=== PATIENT | male | born 1940 | race Caucasian/White ===

== ENCOUNTER 2017-12-30 18:30 | Emergency (ER) | payer MEDICARE, OTHER ==
[2017-12-30] MEDS: NORCO 5/325 MG PO ONE ×2 (19:16→21:33)
[2017-12-30] MEDS ORDERED: NORCO 5/325 MG ONE ×2 (19:16→21:31)
--- NOTE | 2017-12-30 19:20 | ERPHSYRPT ---
- History of Present Illness Time Seen by Provider: 12/30/17 19:07 Source: patient Exam Limitations: no limitations Patient Subjective Stated Complaint: pt here for a fall from a combine tire, about 4 feet high, no loc Triage Nursing Assessment: pt walked in holding left arm,pt co pain to upper left arm, abrasion to forehead,neck pain. no loc Physician History: This is a 77-year-old white male with history of atherosclerotic coronary artery disease who arrives with complaint of falling off of a combine tire which was about 4 feet high at about 10:30 this morning he complains of neck pain he has pain in the bruising on his anterior forehead and pain in his left arm. He denies any loss of consciousness he is not having any chest pain shortness of breath he has pain with any of movement of his left arm this is located in the mid left humeral region. He has no belly pain. Past medical history includes atherosclerotic coronary artery disease myocardial infarction. Past surgical history includes CABG. Social history patient denies tobacco alcohol or illicit drug use. Timing/Duration: today (110:30 AM) Severity: moderate Modifying Factors: Improves With: movement Associated Symptoms: other (pain and bruising forehead, posterior neck pain, left armpain ), No nausea, No vomiting, No abdominal pain, No shortness of breath, No diaphoresis, No cough, No chills, No chest pain, No fever, No headaches, No loss of appetite, No malaise, No rash, No syncope, No seizure, No weakness Allergies/Adverse Reactions: No Known Drug Allergies Allergy (Unverified 12/30/17 18:41) Home Medications: Aspirin EC 325 mg [Ecotrin 325 MG] 352 mg DAILY 12/30/17 [History] Enalapril Maleate 5 mg [Vasotec 5 MG] 5 mg DAILY 12/30/17 [History] Esomeprazole Magnesium [Nexium] 20 mg DAILY 12/30/17 [History] Simvastatin 20 mg DAILY 12/30/17 [History] Hx Tetanus, Diphtheria Vaccination/Date Given: No Hx Influenza Vaccination/Date Given: No Hx Pneumococcal Vaccination/Date Given: No Immunizations Up to Date: Yes - Review of Systems Constitutional: No Fever, No Chills Eyes: No Symptoms Ears, Nose, & Throat: No Symptoms Respiratory: No Cough, No Dyspnea Cardiac: No Chest Pain, No Edema, No Syncope Abdominal/Gastrointestinal: No Abdominal Pain, No Nausea, No Vomiting, No Diarrhea Genitourinary Symptoms: No Dysuria Musculoskeletal: Neck Pain, Other (left arm pain) Skin: No Rash Neurological: Other (pain and bruising forehead), No Dizziness, No Focal Weakness, No Sensory Changes Psychological: No Symptoms Endocrine: No Symptoms All Other Systems: Reviewed and Negative - Past Medical History Pertinent Past Medical History: Yes Cardiac History: Coronary Artery Disease - Past Surgical History Past Surgical History: Yes Cardiac: Cardiac Catheterization - Social History Smoking Status: Never smoker Exposure to second hand smoke: No Drug Use: none Patient Lives Alone: No - Nursing Vital Signs Nursing Vital Signs: Initial Vital Signs Temperature 97 F 12/30/17 18:34 Pulse Rate 48 L 12/30/17 18:34 Respiratory Rate 16 12/30/17 18:34 Blood Pressure 156/80 12/30/17 18:34 O2 Sat by Pulse Oximetry 97 12/30/17 18:34 Pain Scale Pain Intensity 4 - Physical Exam General Appearance: mild distress, alert, other (eccymosis and mild tenderness anterior forehead) Eye Exam: PERRL/EOMI, eyes nml inspection Ears, Nose, Throat Exam: normal ENT inspection, TMs normal, pharynx normal, moist mucous membranes Neck Exam: other (neck in c collar) Respiratory Exam: normal breath sounds, lungs clear, No respiratory distress Cardiovascular Exam: regular rate/rhythm, normal heart sounds, normal peripheral pulses, capillary refill <2 sec Gastrointestinal/Abdomen Exam: soft, normal bowel sounds, No tenderness, No mass Back Exam: normal inspection, normal range of motion, No CVA tenderness, No vertebral tenderness Extremity Exam: other (pain with palpation lateral mid arm decreased leo left shoulder secondary to left arm pain) Neurologic Exam: alert, oriented x 3, cooperative, operator control room II-XII nml as tested, normal mood/affect, nml cerebellar function, nml station & gait, sensation nml, No motor deficits Skin Exam: normal color, warm, dry, No rash SpO2 Interpretation: normal (97%) SpO2: 97 Oxygen Delivery: Room Air - Course Nursing assessment & vital signs reviewed: Yes - Radiology Exams Left Shoulder X-ray Interpretation: Discussed w/ radiologist (x-ray left shoulder: No comparisons. Osteopenia, moderate AC degenerative arthropathy and tiny foreign body left chest wall, high riding humeral head. Rule out rotator cuff tear) - CT Exams Cervical Spine CT Interpretation: Discussed w/radiologist (no comparisons, multilevel degenerative disc disease O/W negative CT spine) Head CT Interpretation: Discussed w/radiologist (Head Ct: no comparisons, O/W non acute ct brain) Ordered Tests: Active Orders 24 hr Category Date Time Status Cervical Collar Application STAT Care 12/30/17 21:01 Active Sling Application STAT Care 12/30/17 21:13 Active Wound Care STAT Care 12/30/17 20:51 Active CERVICAL SPINE WO CONTRAST [CT] Stat Exams 12/30/17 19:12 Taken HEAD WITHOUT CONTRAST [CT] Stat Exams 12/30/17 19:12 Taken HUMERUS Stat Exams 12/30/17 19:13 Taken Medication Summary Discontinued Medications Generic Name Dose Route Start Last Admin Trade Name Freq PRN Reason Stop Dose Admin Hydrocodone Bitart/Acetaminophen 1 tab 12/30/17 19:13 12/30/17 19:16 Kerrick 5/325 Mg PO 12/30/17 19:14 1 tab STAT ONE Administration Hydrocodone Bitart/Acetaminophen Confirm 12/30/17 19:16 Kerrick 5/325 Mg Administered 12/30/17 19:17 Dose 1 tab .ROUTE .STK-MED ONE Bacitracin Zinc 0.9 gm 12/30/17 20:51 12/30/17 21:05 Baciguent Packet TP 12/30/17 20:52 0.9 gm STAT ONE Administration Bacitracin Zinc Confirm 12/30/17 21:01 Baciguent Packet Administered 12/30/17 21:02 Dose 1 gm .ROUTE .STK-MED ONE - Progress Progress: improved Progress Note: 12/30/17 21:19 77-year-old white male with history of atherosclerotic coronary artery disease, CABG arrives with complaint of a pain in his posterior neck, pain in his left lateral humerus symptoms since falling at 10:00 this morning. He apparently fell off the tire of the combine. He did not have any loss of consciousness. He does have pain in his left lateral humerus on range of motion of the patient' s shoulder he is able to lift the arm backwards and's slightly laterally he cannot bring it out completely to the side he has full range of motion to the left elbow wrist hand and fingers. He has minimal tenderness on the posterior and lateral shoulder. He is tender with palpation on the lateral left humerus. Patient is given Kerrick for pain he did not want an injection. Radial and ulnar pulses are intact and symmetrical 2 over 4 there is good capillary refill to all fingers sensation intact to all fingers rn allergy are equal and symmetrical 5 over 5. X-ray of the left humerus is remarkable for a tiny foreign body left chest wall high riding humeral head there is osteopenia. Rule out rotator cuff tear Patient does not have obvious edema or ecchymosis to the left arm. Will go ahead and place the patient in a sling in the left arm Head CT C-spine are negative. Patient will be given a soft collar, Kerrick for pain. Patient is advised to use his sling for 2 days he will need to follow-up with his family doctor or Dr. Bill. He is to call tomorrow morning for an appointment . - Departure Time of Disposition: 21:22 Departure Disposition: Home Clinical Impression: Left arm pain, rule out left rotator cuff tear Accidental fall Qualifiers: Encounter type: initial encounter Qualified Code(s): W19.XXXA - Unspecified fall, initial encounter Head contusion Qualifiers: Encounter type: initial encounter Contusion of head detail: unspecified part of head Qualified Code(s): S00.93XA - Contusion of unspecified part of head, initial encounter Cervical strain Qualifiers: Encounter type: initial encounter Qualified Code(s): S16.1XXA - Strain of muscle, fascia and tendon at neck level, initial encounter Left shoulder strain Qualifiers: Encounter type: initial encounter Qualified Code(s): S46.912A - Strain of unspecified muscle, fascia and tendon at shoulder and upper arm level, left arm , initial encounter Condition: Fair Critical Care Time: No Referrals: FLAVIA CHANG MD [Primary Care Provider] - ARNOLD BILL [ACTIVE STAFF] - Instructions: Contusion (DC), Preventing Falls Additional Instructions: Return home. Use sling 48-72 hours longer if pain persist. Follow-up with your family doctor or Dr. Bill 24-48 hours call tomorrow for an appointment. Ice to left shoulder 24-48 hours. Kerrick 5/325 #12 one orally every 4-6 hours as needed for pain. Return for acute distress or for severe symptoms. Prescriptions: Hydrocodone/Acetaminophen [Kerrick 5-325 Tablet] 1 tab PO Q4-6HPRN PRN #12 tablet MDD 6 tablets PRN Reason: Pain
[2017-12-30] MEDS ORDERED: BACIGUENT PACKET ONE (21:01)
[2017-12-30] MEDS: BACIGUENT PACKET TP ONE (21:05)
[2017-12-30 21:08] VITALS: BP 152/72; PULSE 47
[2017-12-30 21:15] VITALS: O2SAT 97
--- NOTE | 2017-12-31 08:37 | XRAY ---
Indication: Left frontal contusion following fall. Multiple contiguous axial images obtained through the head without contrast. Comparison: None Age-appropriate global atrophy and minimal periventricular degenerative micro-ischemia bilaterally. No acute intracranial hemorrhage, abnormal extra-axial fluid collection, or mass effect. Fourth ventricle is midline without hydrocephalus. Bony calvarium intact. Visualized paranasal sinuses and mastoid air cells are clear. Dolichoectatic basilar artery. Impression: Nonacute senile brain. CTDI 50.62
--- NOTE | 2017-12-31 08:41 | XRAY ---
Indication: Pain following fall. Multiple contiguous axial images obtained through the cervical spine. Sagittal and coronal reformatted images obtained. Comparison: None Age-related osteopenia. Axial images negative for acute fracture, suspicious bony lesions, or spinal canal stenosis. Mild C3-C6 degenerative endplate spurring and mild/moderate multilevel bilateral degenerative facet hypertrophy. Also atlantoaxial degenerative changes. Sagittal and coronal reformatted images demonstrates 2 mm C4 anterolisthesis and C5-C6 disc space narrowing. No acute compression fracture or jumped facet. Normal-appearing craniocervical junction. Visualized noncontrasted soft tissues demonstrates mild scattered carotid calcifications, right greater than left. Impression: 1. Negative acute fracture. 2. Osteopenia and multilevel degenerative changes including minimal grade [address] DI 64.12
--- NOTE | 2017-12-31 08:41 | XRAY ---
Indication: Pain following fall. Comparison: None 2 views of the left humerus demonstrates osteopenia, moderate AC degenerative arthropathy, CABG surgery, and tiny left chest wall foreign body. High riding humeral head commonly seen with rotator cuff tear. No other bony, articular, or soft tissue abnormalities.
== END 2017-12-30 21:45 | disposition home or self-care (01) ==
LOC: ED 18:30
DX: M79.602 Pain in left arm (principal); S00.93XA Contusion of unspecified part of head, initial encounter; S16.1XXA Strain of muscle, fascia and tendon at neck level, initial encounter; S46.912A Strain of unspecified muscle, fascia and tendon at shoulder and upper arm level, left arm, initial encounter; M50.90 Cervical disc disorder, unspecified, unspecified cervical region; S00.81XA Abrasion of other part of head, initial encounter; W17.89XA Other fall from one level to another, initial encounter; M85.812 Other specified disorders of bone density and structure, left shoulder; I25.810 Atherosclerosis of coronary artery bypass graft(s) without angina pectoris
CPT/HCPCS: 70450; 72125; 73060; 99284; L0120; L0172; A9270-GY